=== PATIENT | male | born 1960 | race Caucasian/White ===

== ENCOUNTER 2021-07-07 12:12 | Emergency (ER) | payer BC ==
[~2021-07-07] VITALS: Ht 177.8 cm; Wt 84.4 kg
== END 2021-07-07 14:29 | disposition home or self-care (01) ==
LOC: ER 12:12
DX: S40.011A Contusion of right shoulder, initial encounter (principal); X58.XXXA Exposure to other specified factors, initial encounter; Y93.89 Activity, other specified; Y92.89 Other specified places as the place of occurrence of the external cause; Y99.8 Other external cause status